=== PATIENT | female | born 1970 ===

== ENCOUNTER 2024-03-29 05:50 | Day surgery (SDC) | payer OTHER ==
[2024-03-29] MEDS ORDERED: LIDOCAINE HCL 2% 20ML VIAL IJ ONE (12:30)
[2024-03-29] MEDS ORDERED: CEFAZOLIN SODIUM 1,000 MG VIAL IV ONE (12:30)
== END 2024-03-29 13:40 | disposition home or self-care (01) ==
LOC: CIR.AMB 05:50
PROVIDERS: ATTEND Surgery Surgery of the Hand
DX: M25.841 Other specified joint disorders, right hand (principal); D21.11 Benign neoplasm of connective and other soft tissue of right upper limb, including shoulder